=== PATIENT | male | born 1985 | race Caucasian/White ===

== ENCOUNTER 2025-02-12 10:24 | Inpatient (IN) | payer SELFPAY ==
[2025-02-12 10:26] VITALS: BP 130/83; PULSE 96; RESP 19; TEMP 36.7; O2SAT 100; BMI 26.4
--- NOTE | 2025-02-12 11:21 | XR_ITS ---
Examination: Foot, right, 3 views Technique: AP, oblique, lateral views foot, 3 views Date and time of exam: February 12, 2025, 1134 hours INDICATIONS: Right foot swelling beginning 3 weeks ago. FINDINGS: Prominent hallux valgus bunion deformity Moderate osteoarthritis first metatarsophalangeal joint Erosions distal medial first metatarsal on the oblique view No fracture Soft tissue swelling dorsum of the foot IMPRESSION: Prominent hallux valgus bunion deformity Erosions distal medial first metatarsal on the oblique view, consider early osteomyelitis Suggest MRI foot without contrast follow-up
--- NOTE | 2025-02-12 11:21 | XR_ITS ---
Examination: Duplex scan of the lower extremity, unilateral right Date and time of exam: February 12, 2025, 1209 hours INDICATIONS: Right leg swelling beginning 3 weeks ago Technique: Duplex scan of the extremity veins using B-mode/grayscale imaging and Doppler spectral analysis and color flow Attention is directed to internal echogenicity, compression and augmentation involving these veins, color flow assessment, spectral analysis Findings: Major deep venous structures in the extremity demonstrate normal course and caliber. There is no evidence of deep vein thrombosis. Normal color flow and spectral analysis Impression: Negative for DVT..
[2025-02-12 11:40] LABS: Basophils # (Auto) 0.0 Thou/mm3 (0.0-0.2); Basophils % (Auto) 0 % (0-2.5); Eosinophils # (Auto) 0.0 Thou/mm3 (0.0-0.5); Eosinophils % (Auto) 0 % (0-10); Hematocrit 39.1 % (41.0-53.0); Hemoglobin 13.3 g/dL (13.5-16.0); Immature Granulocytes Auto 0.02 Thou/mm3 (0.00-0.00); Lymphocytes # (Auto) 1.0 Thou/mm3 (1.0-4.8); Lymphocytes % (Auto) 13 % (10-50); Mean Corpuscular HGB Conc 34.0 g/dl (31.0-37.0); Mean Corpuscular Hemoglobin 31.6 pg (25.0-35.0); Mean Corpuscular Volume 93 fL (80-100); Monocytes # (Auto) 0.8 Thou/mm3 (0.0-0.8); Monocytes % (Auto) 10 % (0-12); Neutrophils # (Auto) 5.9 Thou/mm3 (1.8-7.7); Neutrophils % (Auto) 76 % (37-80); Nucleated Red Blood Cell # 0.00 Thou/mm3 (0.00-0.00); Nucleated Red Blood Cell % 0 /100 WBC (0); Platelet Count 184 Thou/mm3 (140-440); RDW Standard Deviation 42.5 fL (35.1-43.9); Red Blood Count 4.21 Miln/mm3 (4.50-5.90); White Blood Count 7.7 Thou/mm3 (3.8-10.6)
[2025-02-12 12:03] LABS: Alanine Aminotransferase 22 U/L (10-49); Albumin, Serum 4.5 gm/dL (3.5-5.0); Albumin/Globulin Ratio 1.5 (1.2-2.2); Alkaline Phosphatase 61 U/L (46-116); Anion Gap 9 (7-16); Aspartate Amino Transferase 31 U/L (0-34); BUN/Creatinine Ratio 17 Ratio (12-20); Bilirubin,Total 0.3 mg/dL (0.3-1.2); Blood Urea Nitrogen 15 mg/dL (9-23); C-Reactive Protein 0.9 mg/dL (0.0-0.9); Calcium 9.5 mg/dL (8.3-10.6); Calcium (Corrected) 9.5 mg/dL (8.5-10.1); Carbon Dioxide 25.6 mMol/L (20.0-31.0); Chloride 107 mMol/L (98-107); Creatinine (Component) 0.9 mg/dL (0.6-1.3); Estimated Creatinine Clearance 115.0 mL/min (>60); Globulin 3.0 gm/dL (2.3-3.5); Glucose 95 mg/dL (74-106); Lipase 38 U/L (12-53); Osmolality,Calculated 283 (275-295); Potassium 4.0 mMol/L (3.4-5.1); Sodium 142 mMol/L (136-145); Total Protein 7.5 gm/dL (5.7-8.2); eGFR > 60 See Note
[2025-02-12] MEDS: PIPER/TAZO INJ 4.5 GM in SODIUM CHLORIDE 0.9% (POP) 100 ML IV (12:23)
[2025-02-12] MEDS: VANCOMYCIN/D5W 1500 MG IVPB 300 ML 120 MG IV (12:59)
[2025-02-12 14:17] LABS: Sed Rate (ESR) 33 mm/hr (0-15)
[2025-02-12 14:19] LABS: Collection Type, Urine Clean Catch
[2025-02-12 14:30] LABS: Bilirubin,Urine Negative (Negative); Blood,Urine Negative (Negative); Clarity,Urine Clear (Clear/Hazy); Color,Urine Lt-Yellow (Lt Yel-Yel); Culture Indicated,Urine Not Indicated; Glucose, Urine Negative (Negative); Ketones,Urine 2+ (Negative); Leukocyte Esterase,Urine Negative (Negative); Nitrite,Urine Negative (Negative); PH,Urine 6.5 (5.0-7.0); Protein,Urine Negative (Neg - Trace); RBC,Urine 4 /hpf (0-3); Specific Gravity,Urine 1.023 (1.001-1.035); Squamous Epithelial Cell,Urine 1 /hpf (0-5); Urobilinogen,Urine Negative mg/dL (0.0-1.0); WBC,Urine 1 /hpf (0-5)
--- NOTE | 2025-02-12 15:34 | EDNOTE_ITS ---
ED Medical Clearance RME/HPI General Chief complaint: Medical Clearance Stated complaint: MEDICAL CLEARANCE Arrival date/time: 02/12/25 10:24 Mode of arrival: ambulatory Limitations: no limitations RME / HPI RME / HPI Narrative: Patient is a 39-year-old male with medical history notable for polysubstance use disorder that is in the emergency department concerns for right foot pain and sw elling. Patient came in as a medical clearance for incarceration. Denies fevers chills nausea vomiting chest pain palpitations abdominal pain dysuria hematuria melena bloody stools. Patient does have a remote history of IV drug use. No recent trauma. Patient lives on the streets. Related Information Previous Rx's ?Medication ?Instructions ?Recorded cephalexin 500 mg capsule 500 mg PO TID Osteomyelitis 6 02/14/25 weeks #126 caps clotrimazole 1 % topical cream 1 applic topical TID Sudeep oth Feet, 02/14/25 fungal infection #15 grams doxycycline hyclate 100 mg capsule 100 mg PO BID Osteo myelitis 6 02/14/25 weeks #84 caps nicotine (polacrilex) 4 mg gum 4 mg buccal Q2H #20 ea 02/14/25 Allergies Allergy/AdvReac Type Severity Reaction Status Date / Time No Known Allergies Allergy Verified 02/12/25 10:31 Review of Systems Review of Systems Systems Reviewed: All systems reviewed, normal except as documented Past Medical History Past Medical History CARDIAC: Positive Deep Vein Thrombosis Social History SMOKING STATUS: Light (< 1 pack/day) SUBSTANCE USE: does not use ED Exam General Limitations: Present no limitations General appearance: Present alert and in no apparent distress Head Head exam: Present atraumatic and normocephalic Eye Eye exam: Present normal appearance and PERRL ENT ENT exam: Present normal exam and normal oropharynx Neck Neck exam: Present normal inspection and full ROM Chest Chest inspection: Present normal inspection and symmetric chest wall rise Respiratory Respiratory exam: Present normal lung sounds bilaterally and respiratory distress Cardiovascular Cardiovascular exam: Present regular rate Abdominal Exam Abdominal exam: Present soft; Absent distention or tenderness Extremities Exam Extremities exam: Present other (Right foot with edema, skin on the plantar surface appears like it is under chronic moisture, the skin appears partially macerated, has multiple ulcers on the toes and the plantar surface of the foot, no associated fluctuance or crepitus no erythema no discharge) Neurological Exam Neurological exam: Present alert and other Psychiatric Psychiatric exam: Present normal affect and normal mood Skin Skin exam: Present warm Course Quality Measures none Orders Category Date Time Status Admit to Inpatient Status Routine Admission 02/12/25 16:12 Active Patient Condition Routine Admission 02/12/25 16:11 Ordered Notify provider NEEDED Care 02/12/25 16:11 Completed Diet Regular Diet 02/12/25 Dinner Active US venous doppler LE RT Stat Exams 02/12/25 11:21 Completed XR foot comp RT min 3V Stat Exams 02/12/25 11:21 Completed Blood Culture (Lab) Stat Lab 02/12/25 15:57 Completed CBC AM DRAW Lab 02/13/25 04:19 Completed CBC AM DRAW Lab 02/14/25 05:07 Completed CBC Stat Lab 02/12/25 11:29 Completed CMP [Comprehensive Metabolic Panel] Stat Lab 02/12/25 11:29 Completed CRP [C-Reactive Protein] Stat Lab 02/12/25 11:29 Completed Comprehensive Metabolic Panel AM DRAW Lab 02/13/25 04:19 Completed Comprehensive Metabolic Panel AM DRAW Lab 02/14/25 05:07 Completed ESR [Sed Rate (ESR)] Stat Lab 02/12/25 11:29 Completed Lipase Stat Lab 02/12/25 11:29 Completed Magnesium AM DRAW Lab 02/13/25 04:19 Completed Magnesium AM DRAW Lab 02/14/25 05:07 Completed Phosphorous AM DRAW Lab 02/13/25 04:19 Completed Phosphorous AM DRAW Lab 02/14/25 05:07 Completed UA, C/S IF [Urinalysis, C/S if Indicated] Stat Lab 02/12/25 14:12 Completed Acetaminophen Tab [Tylenol Tab] Med 02/12/25 16:11 Discontinued 650 mg PO Q6H PRN Ibuprofen Tab [Motrin Tab] Med 02/12/25 16:11 Discontinued 600 mg PO Q6H PRN Ondansetron Inj [Zofran Inj] Med 02/12/25 16:11 Discontinued 4 mg IVP Q6H PRN Piper/Tazo Inj [Zosyn Inj] 4.5 gm Med 02/12/25 11:22 Discontinued Sodium Chloride 0.9% (Pop) [NS 0.9% mini bag] 100 ml IV STAT Vancomycin Pharmacy to Dose Med 02/12/25 09:00 Discontinued 1 each IV X1 ONE Vancomycin/D5w 1500 mg Ivpb 300 ml Med 02/12/25 11:45 Discontinued IV X1 oxyCODONE/APAP 5/325 [Percocet 5/325] Med 02/12/25 16:11 Discontinued 1 tab PO Q6H PRN Code Status Routine Oth 02/12/25 16:11 Completed Oxygen Delivery PRN RT 02/12/25 16:11 Completed Vital Signs Vital signs: Vital Signs Temperature 98.1 F 02/12/25 10: Pulse Rate 96 02/12/25 10: Respiratory Rate 19 02/12/25 10: Blood Pressure 130/83 02/12/25 10:26 Pulse Oximetry (%) 100 02/12/25 10:26 Oxygen Delivery Method Room Air 02/12/25 10: Pulse ox is 100% on room air which is adequate. Medical Clearance MDM Narrative MDM Narrative:: Patient is a 39-year-old male is in the emerged by concerns for right foot swelling and pain. Vital signs and exam as listed. Concern for cellulitis, osteomyelitis, trench foot, DVT among others. Ordered labs, x-ray of the foot as well as ultrasound of the lower extremity. Also ordered broad-spectrum antibiotics. Labs without any acute hematologic abnormality, no white count no left shift, ESR 33 our upper limit of normal is 15 CRP not elevated, no acute electrolyte abnormalities, urinalysis without evidence of infection x-ray of the foot with evidence of possible early osteomyelitis. Ultrasound of lower extremity unremarkable. Given findings on imaging and workup concerned the patient has osteomyelitis, consulted hospitalist for admission. Kindly accepted for admission Patient data External records reviewed:: None Clinical information provided by:: patient and law enforcement Social determinants that could affect healthcare access:: substance use Patient has the following chronic illnesses:: See MDM How is presenting disease/condition affected by chronic disease/condition?: exa cerbated by Evaluation data The following diagnostics were reviewed and interpreted by me:: lab results and radiology exam(s) Lab and/or radiology exams considered but not ordered:: None Interpretation Summary: See MDM Medications / Prescriptions Medications or Prescriptions considered but not ordered:: None Medication administrations:: Medication Administration History Discontinued Medications Acetaminophen (Acetaminophen 325 Mg Tablet) 650 mg PO Q6H PRN PRN Reason: Fever >101.5 Stop: 03/14/25 16:10 Clotrimazole (Clotrimazole Cr 1% 30 Gm Tube) 0 gm TOP BID ZOEY Stop: 03/15/25 20:59 Last Admin: 02/14/25 09:21 Dose: 1 applicatio Documented By: Admin: 02/13/25 20:33 Dose: Not Given Documented By: BRET Non-Admin Reason: Medication Not Available Heparin Sodium (Porcine) (Heparin Sod Inj 5000 Unit/Ml Vial) 5,000 unit SC Q12HR ZOEY Stop: 02/26/25 20:59 Last Admin: 02/14/25 09:13 Dose: 5,000 unit Documented By: ELLA Co-signed By: HARRY Admin: 02/13/25 20:26 Dose: 5,000 unit Documented By: BRET Co-signed By: JORGE L Admin: 02/13/25 09:19 Dose: 5,000 unit Documented By: ALONDRA Co-signed By: ANNA Admin: 02/12/25 22:47 Dose: 5,000 unit Documented By: MELISSA Co-signed By: LIZBET Piperacillin Sod/Tazobactam (Sod 4.5 gm/ Sodium Chloride) 100 mls @ 200 mls/hr IV STAT STA; Protocol Stop: 02/12/25 11:51 Last Infusion: 02/12/25 13:00 Dose: Infused Documented By: Admin: 02/12/25 12:23 Dose: 200 mls/hr Documented By: GEN Vancomycin HCl/Dextrose (Vancomycin/D5w 1500 Mg Ivpb) 300 mls @ 120 mls/hr IV X1 ONE Stop: 02/12/25 14:14 Last Admin: 02/12/25 12:59 Dose: 120 mls/hr Documented By: GEN Ceftriaxone Sodium 2 gm/ (Sodium Chloride) 50 mls @ 100 mls/hr IV QDAY ZOEY Stop: 02/19/25 16:21 Last Admin: 02/14/25 09:13 Dose: 100 mls/hr Documented By: Infusion: 02/13/25 09:49 Dose: Infused Documented By: Admin: 02/13/25 09:19 Dose: 100 mls/hr Documented By: Infusion: 02/12/25 18:21 Dose: Infused Documented By: Admin: 02/12/25 17:51 Dose: 100 mls/hr Documented By: GEN Doxycycline Hyclate 100 mg/ (Sodium Chloride) 100 mls @ 100 mls/hr IV BID ZOEY Stop: 02/19/25 20:59 Last Admin: 02/14/25 09:56 Dose: 100 mls/hr Documented By: Infusion: 02/13/25 21:26 Dose: Infused Documented By: Admin: 02/13/25 20:26 Dose: 100 mls/hr Documented By: Infusion: 02/13/25 10:59 Dose: Infused Documented By: Admin: 02/13/25 09:59 Dose: 100 mls/hr Documented By: Infusion: 02/12/25 23:47 Dose: Infused Documented By: Admin: 02/12/25 22:47 Dose: 100 mls/hr Documented By: CTF Ibuprofen (Ibuprofen Tab 600 Mg Tablet) 600 mg PO Q6H PRN PRN Reason: Pain 1-3 and fever >100.4F Stop: 03/14/25 16:10 Influenza Virus Vaccine Quadrival (Influenza Virus 0.5 Ml Syringe ) 0.5 ml IMi .ONCE ONE Stop: 02/12/25 19:56 Nicotine (Nicotine Patch 21 Mg/24 Hr Patch.Td24) 21 mg TOP [facility]DAY [facility] Stop: 03/15/25 08:59 Last Admin: 02/14/25 09:14 Dose: 21 mg Documented By: Admin: 02/13/25 09:19 Dose: 21 mg Documented By: DC Nicotine (Nicotine Patch 14 Mg/24 Hr Patch.Td24) 14 mg TOP QDAY [facility] Stop: 03/15/25 20:29 Last Admin: 02/13/25 20:33 Dose: 14 mg Documented By: CP Ondansetron HCl (Ondansetron Inj 2 Mg/Ml Inj 2 Ml) 4 mg IVP Q6H PRN; Protocol PRN Reason: NAUSEA OR VOMITING Stop: 03/14/25 16:10 Oxycodone/Acetaminophen (Oxycodone/Apap 5/325 Tablet) 1 tab PO Q6H PRN PRN Reason: PAIN SCALE 4-6 (Moderate Stop: 02/17/25 16:10 Pharmacy Consult (Vancomycin Pharmacy To Dose 1 Each Each) 1 each IV X1 ONE Stop: 02/12/25 09:01 Last Admin: 02/12/25 10:24 Dose: Not Given Documented By: CS Non-Admin Reason: Duplicate Medication on eMAR Potassium Chloride (Potassium Chloride 20 Meq Tabcr) 40 meq PO X1 ONE Stop: 02/13/25 07:16 Last Admin: 02/13/25 09:19 Dose: 40 meq Documented By: DC See above Consultations Consultation(s) initiated? (list below): Yes Diagnosis Medical Clearance Differential Diagnosis: other Most likely diagnosis given after review of the tests above:: Right foot osteomyelitis Admission Indicated Admission indicated?: indicated Admission Request Was there a request for admission?: Yes Admission Attestation Admission request attestation: Discussed case with Hospitalist service regarding admission. Discussed patients ED course, exam findings, labs, and radiology results. The Hospitalist [agrees] to accept the patient for admission. Disposition Plan Disposition Plan: Admit Critical Care Time Critical Care Time Critical Care Time: Yes Total Critical Care Time (min.): 36 Attestation: Total critical care time: Approximately?36?minutes Due to a high probability of clinically significant, life threatening deterioration, the patient required my highest level of preparedness to intervene emergently and I personally spent this critical care time directly and personally managing the patient. This critical care time included obtaining a history; examining the patient; pulse oximetry; ordering and review of studies; arranging urgent treatment with development of a management plan; evaluation of patient's response to treatment; frequent reassessment; and, discussions with other providers. This critical care time was performed to assess and manage the high probability of imminent, life-threatening deterioration that could result in multi-organ failure. It was exclusive of separately billable procedures and treating other patients and teaching time. Please see MDM section and the rest of the note for further information on patient assessment and treatment. Discharge Plan Plan Patient Disposition: Admit Acute Care w/in Hospital Patient condition on transfer: Stable Problem List Clinical Impression: Osteomyelitis Patient/Caregiver Discharge Instructions Discharge Activity: activity as tolerated
[2025-02-12 16:11] VITALS: PULSE 94; RESP 100; RESP 16
--- NOTE | 2025-02-12 16:18 | ESHP_ITS ---
<Statement entered by Comfort Henning MD - 02/12/25 20:49> Patient was seen and examined at bedside. I agree on the assessment and plan on this note as documented by resident Dr Ina Barclay DO PGY1. 39-year-old male with past medical history of right lower extremity DVT 2018, chronic smoker, about 30 pack years and polysubstance use presented to [facility] emergency department with a chief complaint of foot pain. Patient currently complaining of left foot and left calf pain which he reports started about 3 weeks ago has been progressive, patient has significant swelling in the right lower extremity, there is minimal surrounding erythema around right hallux ulcer and left foot ulceration. In the ER patient underwent x-ray of the right foot which was prominent for hallux valgus bunion deformity and distal medial first third metatarsal erosions consistent with early osteomyelitis. Patient was given IV Zosyn and vancomycin in the emergency department, we will admit patient for management of cellulitis and further workup for osteomyelitis patient will be started on IV ceftriaxone and doxycycline, we will obtain bilateral lower extremity arterial Doppler, HIV serology, urine drug screen and hemoglobin A1c in AM. We will consider MRI to rule out osteomyelitis, wound care consulted. Of note patient was sent for medical clearance from court for incarceration. Case discussed with attending Dr. Shira Lane MD PGY-2 Documentation for date of: 02/12/25 HPI History of Present Illness History of present illness: History of Present Illness Nazario Cotton, 39yM, with PMH of polysubstance use presented to the hospital for evaluation of foot ulceration and pain. He is a poor historian with limited self care, and his account of symptoms has been inconsistent across providers. Patient reported left foot and left calf pain beginning approximately 3 weeks ago, without preceding trauma, scratching, or IV drug use. However, according to the ED note, he initially presented for right foot pain and swelling of 3 days duration, without associated fever or chills, and with a documented history of IV drug use. He was brought in from court for medical clearance prior to incarceration. On examination, he was found to have a right hallux lateral ulcer and a left 5th toe dorsal ulceration. Both lesions were non-draining with minimal surround erythema. Despite bilateral findings, he continued to report pain only in left foot and calf. Patient will be admitted for management of cellulitis. ED course: Vitals: Temperature 98.1 F, FL 96, RR 19, BP 130/83, 100% O2 saturation on room air. Labs: WBC 7.7, Hgb 13.3, ESR 33, potassium 4.0, anion gap 9, creatinine 0.9, CRP 0.9 XR of Right foot (02/12/2025): Prominent hallux valgus bunion deformity, Erosions distal medial first metatarsal on the oblique view, consider early osteomyelitis US venous doppler right Lower Extremity (02/12/2025): Negative for DVT Medical history: As stated above Surgical history: Denies Allergies: NKDA Medications: Pending official med rec Family history: Noncontributory Social history: Smoked for 30 years, Occasional drinking alcohol, Smoking Marijuana. Denies using other illicit drugs Review of Systems Review of Systems Narrative Review of Systems: All 12 systems assessed and the patient denies unless otherwise stated in HPI Exam Vital Signs Temp Pulse Resp BP Pulse Ox O2 Del Method 98.1 F 96 19 130/83 100 Room Air 02/12/25 10:26 02/12/25 10:26 02/12/25 10:26 02/12/25 10:26 02/12/25 10:26 02/12/25 10:26 Narrative Exam General: No acute distress, well nourished, AAO x2 Eye: PERRL, EOMI, normal conjunctiva, no scleral icterus HENT: Normocephalic, atraumatic, hearing intact to conversation at normal volume, moist oral mucosa Neck: Supple, non-tender, no JVD, no lymphadenopathy Lungs: Non-labored respirations, symmetric chest rise, Clear to auscultate bilaterally, No wheezing, rhonchi, crackles Heart: Peripheral pulses intact bilaterally, Regular Rate and Rhythm. Abdomen: Soft, non-tender, non-distended, no palpable masses Musculoskeletal: Normal range of motion and strength, No cyanosis or edema, No visible joint swelling, Tenedbilateral calf Skin: Right hallux lateral ulcer and a left 5th toe dorsal ulceration. Both lesions were non-draining with minimal surround erythema. Psychiatric: Cooperative, appropriate mood and affect, Awake and alert, not agitated Neuro: Cranial nerves II-XII grossly intact. Strength 5/5 throughout. Sensations intact to light touch. Results: Labs 02/13/25 04:19 02/13/25 04:19 Labs: Short CBC 02/12/25 Range/Units 11: WBC 7.7 (3.8-10.6) Thou/mm3 Hgb 13.3 L (13.5-16.0) g/dL Hct 39.1 L (41.0-53.0) % Plt Count 184 (140-440) Thou/mm3 BMP 02/12/25 11:29 Sodium 142 Potassium 4.0 Chloride 107 Carbon Dioxide 25.6 BUN 15 Creatinine 0.9 Glucose 95 Calcium 9.5 Liver Function 02/12/25 Range/Units 11:29 Total Bilirubin 0.3 (0.3-1.2) mg/dL AST 31 (0-34) U/L ALT 22 (10-49) U/L Alkaline Phosphatase 61 (46-116) U/L Albumin 4.5 (3.5-5.0) gm/dL Urine 02/12/25 Range/Units 14:12 Urine Color Lt-Yellow (Lt Yel-Yel) Urine Clarity Clear (Clear/Hazy) Urine pH 6.5 (5.0-7.0) Ur Specific [place] 1.023 (1.001-1.035) Urine Protein Negative (Neg - Trace) Urine Glucose (UA) Negative (Negative) Quality Measures Quality Measures VTE prophylaxis Medications Home Medications and Allergies Home Medications ?Medication ?Instructions ?Recorded ?Confirmed ?Type No Known Home Medications 12/29/1801/19 History Allergies Allergy/AdvReac Type Severity Reaction Status Date / Time No Known Allergies Allergy Verified 02/12/25 10:31 Visit Medications Discontinued Medications Piperacillin Sod/Tazobactam (Sod 4.5 gm/ Sodium Chloride) 100 mls @ 200 mls/hr IV STAT STA; Protocol Stop: 02/12/25 11:51 Last Infusion: 02/12/25 13:00 Dose: Infused Vancomycin HCl/Dextrose (Vancomycin/D5w 1500 Mg Ivpb) 300 mls @ 120 mls/hr IV X1 ONE Stop: 02/12/25 14:14 Last Admin: 02/12/25 12:59 Dose: 120 mls/hr Pharmacy Consult (Vancomycin Pharmacy To Dose 1 Each Each) 1 each IV X1 ONE Stop: 02/12/25 09:01 Last Admin: 02/12/25 10:24 Dose: Not Given Assessment & Plan Plan Nazario Cotton, 39yM, with PMH of polysubstance use presented to the hospital for evaluation of foot ulceration and pain. Patient will be admitted for management of cellulitis. #Cellulitis of left and right toe #Right hallux lateral ulcer and a left 5th toe dorsal ulcer -In admission, Temperature 98.1 F, FL 96, RR 19, WBC 7.7, Hgb 13.3, ESR 33, potassium 4.0, anion gap 9, creatinine 0.9, CRP 0.9 -Patient reported left foot and calf pain that started 3 weeks ago. -On examination, he was found to have a right hallux lateral ulcer and a left 5th toe dorsal ulceration. Both lesions were non-draining with minimal surround erythema. -XR of Right foot (02/12/2025): Prominent hallux valgus bunion deformity, Erosions distal medial first metatarsal on the oblique view, consider early osteomyelitis -US venous doppler right Lower Extremity (02/12/2025): Negative for DVT Plan: -On IV Ceftriaxone 2g qd and IV Doxycycline 100mg bid -HbA1c, HIV (1&2) antibotdy, Hep panel, Lactic acid ordered -US arterial duplex bilateral Lower Extremity pending -XR left foot pending -BCx pending -Referral Wound care Disposition: MedSurg Diet: Regular diet GI prophylaxis: Not indicated DVT prophylaxis: Heparin 5000 units SC q12hr Code: FULL Assessment and plan discussed with my attending physician Dr. Gloria and Dr. Henning (PGY-2) Dr. Barclay (PGY-1) - Internal medicine resident Attending Provider Attestation/Addendum Shira Lorenzo DO, attest that I was physically present for the [place] portions of the service and evaluated the patient with the resident and I reviewed and discussed the case with the resident and agree with the resident's findings and plans of care as documented above Patient is a 39-year-old male with past medical history of DVT in the right lower extremity, chronic tobacco use who presented to the ED due to worsening lower extremity pain. He states that he noticed the pain and worsening swelling in the right foot for the past 3 weeks. He states that his legs first started to swell, causing his shoes to be too tight, resulting in ulcers on his first and fifth digits of b/l feet. Patient is homeless and has very poor hygiene. ulcers appear dry with dirt encrusted in ulcer and between toes. Patient reports pain on palpation. Right foot is edematous with 2+ pitting edema and erythema noted on dorsum of foot. Patient denies any trauma, falls or animal/ insect bites. XR of foot shows signs of early osteomyelitis. Will admit patient to med/surg for antibiotics and treatment of cellulitis of right foot and osteomyelitis of first metatarsal. Patient has no hx of diabetes and does not take any medications. Will check and A1c. Will also order arterial US of b/l LE to rule out PAD given hx of chronic tobacco use. will start on doxycycline and rocephin. Will consult wound care. F/u with blood cultures to rule out hematogenous cause for osteomyelitis.
--- NOTE | 2025-02-12 16:18 | XR_ITS ---
Examination: Arterial duplex lower extremity study. Date and time of exam: February 12, 2025, 1659 hours INDICATIONS: Right leg swelling beginning 3 weeks ago Findings: Duplex sonographic imaging of the lower extremity arteries using B-mode/Saunders scale imaging and Doppler spectral analysis and color flow. Ankle brachial indices have been recorded. Right common femoral artery demonstrates biphasic flow. Right superficial femoral artery demonstrates biphasic flow. Right popliteal artery demonstrates biphasic flow. Right posterior tibial artery demonstrated monophasic flow. Right ankle/brachial index is 1.3. Left common femoral artery demonstrates triphasic flow. Left superficial femoral artery demonstrates biphasic flow. Left popliteal artery demonstrates biphasic flow. Left posterior tibial artery demonstrated monophasic flow. Left ankle/brachial index is 1.4. Impression: Negative study
--- NOTE | 2025-02-12 16:21 | XR_ITS ---
Examination: Foot, left, 3 views Technique: AP, oblique, lateral views foot, 3 views Date and time of exam: February 12, 2025, 1731 hours INDICATIONS: Ulcer nonhealing left foot 3 weeks with pain FINDINGS: Soft tissue swelling dorsum of the foot No acute fracture Tiny plantar bony calcaneal spur No cary cortical bone destruction IMPRESSION: No cary cortical bone destruction
--- NOTE | 2025-02-12 16:29 | PC.NURSE ---
Pt was brought in for medical clearance, but is getting admitted. State bulk station agent Saeed Scott left his card with his number of [phone] and said to call him if we have any problems pt. He also stated that the pt is a high risk sex offender with restrictions when it comes to children, so I informed my charge nurse so that she could inform the appropriate person to insure that this pt's room is in an appropriate location based on policy and safety for other pts. The interface control officer also stated that the pt is wearing a parole tracking device that needs to be charged twice a day for 1 hour each time. Will inform the next nurse that assumes care
[2025-02-12 16:34] VITALS: BP 106/59; PULSE 97; RESP 18; TEMP 36.6; O2SAT 99
--- NOTE | 2025-02-12 16:47 | PC.NURSE ---
[facility] phone # [phone]
[2025-02-12 17:27] LABS: Lactate (Lactic Acid) 0.7 mMol/L (0.4-2.0)
[2025-02-12] MEDS: cefTRIAXone 2 GM in SODIUM CHLORIDE 0.9% (Popper) 50 ML IV (17:51)
[2025-02-12 18:03] LABS: HIV (1&2) Antibody Rapid Non-Reactive
[2025-02-12 18:17] VITALS: BP 95/67; PULSE 83; RESP 18; TEMP 36.9; O2SAT 100
[2025-02-12 18:33] VITALS: BP 103/71; PULSE 74; RESP 18; TEMP 36.9; O2SAT 100
--- NOTE | 2025-02-12 18:38 | PC.NURSE ---
Called agent Sonia and informed him that the pt was being transferred to [facility]. I asked Sonia what we (the hospital) needs to do when the pt is discharged, he said there's nothing to do on our end because it is the pt's responsibility to contact the agent and inform him of his location/status. Sonia also stated that the pt does have the GPS tracker on him so the agent can see where he is at all times. Pt is aware of the need to charge the tracking device, how to do it, and the grievance and appeals coordinator was placed in his belongings bag which was taken upstairs with him.
[2025-02-12 20:00] VITALS: BP 103/64; PULSE 64; RESP 17; TEMP 36.2; O2SAT 99
[2025-02-12 21:28] LABS: Hepatitis A Antibody IgM Non Reactive (Non React); Hepatitis B Core Antibody IgM Non Reactive (Non React); Hepatitis B Surface Antigen Non Reactive (Non React); Hepatitis C Antibody Non Reactive (Non React)
[2025-02-12 22:39] VITALS: BMI 28.1
[2025-02-12] MEDS: DOXYCYCLINE INJ 100 MG in SODIUM CHLORIDE 0.9% (POP) 100 ML IV (22:47)
[2025-02-12] MEDS: HEPARIN SOD INJ 5000 UNIT/ML VIAL SC (22:47)
[2025-02-13] VITALS (7 sets, daily range): BP systolic 111–132; BP diastolic 67–81; PULSE 81–93; RESP 16–97; TEMP 36.1–36.4; O2SAT 92–99
[2025-02-13 06:02] LABS: Basophils # (Auto) 0.0 Thou/mm3 (0.0-0.2); Basophils % (Auto) 0 % (0-2.5); Eosinophils # (Auto) 0.0 Thou/mm3 (0.0-0.5); Eosinophils % (Auto) 1 % (0-10); Hematocrit 37.9 % (41.0-53.0); Hemoglobin 12.8 g/dL (13.5-16.0); Immature Granulocytes Auto 0.02 Thou/mm3 (0.00-0.00); Lymphocytes # (Auto) 1.5 Thou/mm3 (1.0-4.8); Lymphocytes % (Auto) 25 % (10-50); Mean Corpuscular HGB Conc 33.8 g/dl (31.0-37.0); Mean Corpuscular Hemoglobin 32.2 pg (25.0-35.0); Mean Corpuscular Volume 95 fL (80-100); Monocytes # (Auto) 0.6 Thou/mm3 (0.0-0.8); Monocytes % (Auto) 11 % (0-12); Neutrophils # (Auto) 3.8 Thou/mm3 (1.8-7.7); Neutrophils % (Auto) 63 % (37-80); Nucleated Red Blood Cell # 0.00 Thou/mm3 (0.00-0.00); Nucleated Red Blood Cell % 0 /100 WBC (0); Platelet Count 173 Thou/mm3 (140-440); RDW Standard Deviation 44.1 fL (35.1-43.9); Red Blood Count 3.98 Miln/mm3 (4.50-5.90); White Blood Count 6.0 Thou/mm3 (3.8-10.6)
[2025-02-13 06:22] LABS: Alanine Aminotransferase 16 U/L (10-49); Albumin, Serum 4.0 gm/dL (3.5-5.0); Albumin/Globulin Ratio 1.5 (1.2-2.2); Alkaline Phosphatase 53 U/L (46-116); Anion Gap 10 (7-16); Aspartate Amino Transferase 23 U/L (0-34); BUN/Creatinine Ratio 10 Ratio (12-20); Bilirubin,Total 0.4 mg/dL (0.3-1.2); Blood Urea Nitrogen 9 mg/dL (9-23); Calcium 8.6 mg/dL (8.3-10.6); Calcium (Corrected) 8.6 mg/dL (8.5-10.1); Carbon Dioxide 24.5 mMol/L (20.0-31.0); Cardiac Risk Estimate 2.7 RATIO (4.0-6.7); Chloride 106 mMol/L (98-107); Cholesterol 101 mg/dL (132-200); Creatinine (Component) 0.9 mg/dL (0.6-1.3); Estimated Creatinine Clearance 125.0 mL/min (>60); Free T4 (Free Thyroxine) 1.18 ng/dL (0.89-1.76); Globulin 2.6 gm/dL (2.3-3.5); Glucose 125 mg/dL (74-106); HDL Cholesterol 38 mg/dL (40-60); LDL Cholesterol,Calculated 53 mg/dL (0-130); Magnesium 2.0 mg/dL (1.6-2.6); Osmolality,Calculated 279 (275-295); Phosphorous 2.8 mg/dL (2.4-5.1); Potassium 3.5 mMol/L (3.4-5.1); Sodium 140 mMol/L (136-145); Thyroid Stimulating Hormone 0.72 uIU/mL (0.55-4.78); Total Protein 6.6 gm/dL (5.7-8.2); Triglycerides 50 mg/dL (30-150); eGFR > 60 See Note
[2025-02-13 06:25] LABS: Glucose Estimated Average 105 mg/dL (80-131); Hemoglobin A1C 5.3 % Hgb (4.8-6.0)
[2025-02-13 08:18] LABS: Amphetamine/Methamp Scrn,U Positive (Negative); Barbiturate Screen,Urine Negative (Negative); Benzodiazepines Screen,Urine Negative (Negative); Benzoylecgonine Screen, Ur Negative (Negative); Fentanyl Screen,Urine Negative (Negative); Opiate Screen,Urine Negative (Negative); THC Screen,Urine Positive (Negative)
[2025-02-13] MEDS: cefTRIAXone 2 GM in SODIUM CHLORIDE 0.9% (Popper) 50 ML IV (09:19)
[2025-02-13] MEDS: HEPARIN SOD INJ 5000 UNIT/ML VIAL SC ×2 (09:19→20:26)
[2025-02-13] MEDS: NICOTINE PATCH 21 MG/24 HR PATCH.TD24 TOP (09:19)
[2025-02-13] MEDS: DOXYCYCLINE INJ 100 MG in SODIUM CHLORIDE 0.9% (POP) 100 ML IV ×2 (09:59→20:26)
--- NOTE | 2025-02-13 11:46 | PC.SS ---
SS met with patient regarding his d/c plan. Pt is alert/oriented. Pt was admitted for Cellulititis. Pt confirmed demographic and contact information is correct on facesheet. Pt states he resides with his friends. Pt ambulates independently without assistance or DME. Pt is ok with all ADLs. Pt states he has GPS Monitor and his Legal Recruiter, Saeed Eubanksjack, is his emergency personal care worker. Pt states his parol agent [place] transportation at [place]. Pt states he was brought to hospital by his youth agent. Pt states he has not followed up with PCP in years. SS provided verbal options to follow up with PCP. Pt is requesting to follow up with the physican residents at their clinic. D/C plan: Return home Next of Kin: Legal Recruiter, Saeed Eubanksjack, phone# PCP: follow up at the [facility] Address: Correct on facesheet
--- NOTE | 2025-02-13 16:17 | ESPR_ITS ---
<Statement entered by Comfort Henning MD - 02/13/25 18:14> Patient was seen and examined at bedside. I agree on the assessment and plan on this note as documented by resident Dr Ina Barclay DO PGY1. 39-year-old male admitted for cellulitis and possible osteomyelitis of the right foot, currently on IV antibiotics, foot pain has improved, will start on topical antifungals. Will follow cultures which are pending. Anticipate discharge in the next 24 hours on oral antibiotics for 6 weeks. Case discussed with attending Dr. Shira Lane MD PGY-2 Documentation for date of: 02/13/25 Subjective Subjective Interval history: Patient on IV Ceftriaxone 2g qd and IV Doxycycline 100mg bid HbA1c level 5.3, hep panel negative, HIV 1 and 2 antibody was negative US arterial duplex bilateral Lower Extremity was negative XR left foot: negative Blood Culture was negative for 24 hours. Patient will receive 1 more day of IV antibiotics. Expected to be discharged within 24 to 48 hours. No Overnight events. Labs reviewed and patient examined at the bedside. Denies chest pain, palpation, SOB, abdominal pain, N/V, fevers or chills. Exam Vital Signs Temp Pulse Resp BP Pulse Ox O2 Del Method 97.4 F 88 18 111/79 99 Room Air 02/13/25 15:57 02/13/25 16:05 02/13/25 16:05 02/13/25 15:57 02/13/25 15:57 02/13/25 15:57 Narrative Exam General: No acute distress, well nourished, AAO x2 Eye: PERRL, EOMI, normal conjunctiva, no scleral icterus HENT: Normocephalic, atraumatic, hearing intact to conversation at normal volume, moist oral mucosa Neck: Supple, non-tender, no JVD, no lymphadenopathy Lungs: Non-labored respirations, symmetric chest rise, Clear to auscultate bilaterally, No wheezing, rhonchi, crackles Heart: Peripheral pulses intact bilaterally, Regular Rate and Rhythm. Abdomen: Soft, non-tender, non-distended, no palpable masses Musculoskeletal: Normal range of motion and strength, No cyanosis or edema, No visible joint swelling, Tenedbilateral calf Skin: Right hallux lateral ulcer and a left 5th toe dorsal ulceration. Both lesions were non-draining with minimal surround erythema. Psychiatric: Cooperative, appropriate mood and affect, Awake and alert, not agitated Neuro: Cranial nerves II-XII grossly intact. Strength 5/5 throughout. Sensations intact to light touch. Objective Labs 02/14/25 05:07 02/14/25 05:07 Labs: Laboratory Results - last 24 hr 02/12/25 02/12/25 02/13/25 16:02 17:24 04:19 WBC 6.0 RBC 3.98 L Hgb 12.8 L Hct 37.9 L MCV 95 MCH 32.2 MCHC 33.8 RDW Std Deviation 44.1 H Plt Count 173 Neut % (Auto) 63 Lymph % (Auto) 25 Anderson % (Auto) 11 Eos % (Auto) 1 Baso % (Auto) 0 Neut # (Auto) 3.8 Lymph # (Auto) 1.5 Anderson # (Auto) 0.6 Eos # (Auto) 0.0 Baso # (Auto) 0.0 Immature Gran # (Auto) 0.02 H Absolute Nucleated RBC 0.00 Immature Gran % 0 Nucleated RBC % 0 Sodium 140 Potassium 3.5 D Chloride 106 Carbon Dioxide 24.5 Anion Gap 10 BUN 9 Creatinine 0.9 Estim Creat Clear Calc 125.0 eGFR > 60 BUN/Creatinine Ratio 10 L Glucose [address] Glu mg/dL 105 Hemoglobin A1c 5.3 Calculated Osmolality 279 Lactic Acid 0.7 Calcium 8.6 Corrected Calcium 8.6 Phosphorus 2.8 Magnesium 2.0 Total Bilirubin 0.4 AST 23 ALT 16 Alkaline Phosphatase 53 Total Protein 6.6 Albumin 4.0 D Globulin 2.6 Albumin/Globulin Ratio 1.5 Triglycerides 50 Cholesterol 101 L LDL Cholesterol, Calc 53 HDL Cholesterol 38 L Cholesterol/HDL Ratio 2.7 L TSH 0.72 Free T4 1.18 Urine Opiates Screen Urine Fentanyl Screen Ur Barbiturates Screen U Amphetamin/Meth Scrn U Benzodiazepines Scrn U Cocaine Metab Screen U Marijuana (THC) Screen Hepatitis A IgM Ab Non Reactive Hep Bs Antigen Non Reactive Hep B Core IgM Ab Non Reactive Hepatitis C Antibody Non Reactive HIV 1&2 Antibody Rapid Non-Reactive 02/13/25 07:15 WBC RBC Hgb Hct MCV MCH MCHC RDW Std Deviation Plt Count Neut % (Auto) Lymph % (Auto) Anderson % (Auto) Eos % (Auto) Baso % (Auto) Neut # (Auto) Lymph # (Auto) Anderson # (Auto) Eos # (Auto) Baso # (Auto) Immature Gran # (Auto) Absolute Nucleated RBC Immature Gran % Nucleated RBC % Sodium Potassium Chloride Carbon Dioxide Anion Gap BUN Creatinine Estim Creat Clear Calc eGFR BUN/Creatinine Ratio Glucose Estimated Ave Glu mg/dL Hemoglobin A1c Calculated Osmolality Lactic Acid Calcium Corrected Calcium Phosphorus Magnesium Total Bilirubin AST ALT Alkaline Phosphatase Total Protein Albumin Globulin Albumin/Globulin Ratio Triglycerides Cholesterol LDL Cholesterol, Calc HDL Cholesterol Cholesterol/HDL Ratio TSH Free T4 Urine Opiates Screen Negative Urine Fentanyl Screen Negative Ur Barbiturates Screen Negative U Amphetamin/Meth Scrn Positive A U Benzodiazepines Scrn Negative U Cocaine Metab Screen Negative U Marijuana (THC) Screen Positive A Hepatitis A IgM Ab Hep Bs Antigen Hep B Core IgM Ab Hepatitis C Antibody HIV 1&2 Antibody Rapid Quality Measures Quality Measures VTE prophylaxis Assessment & Plan Assessment Current Active Medications: Generic Name Dose Route Start Last Admin Trade Name Freq PRN Reason Stop Dose Admin Acetaminophen 650 mg 02/12/25 16:11 Acetaminophen 325 Mg Tablet PO 03/14/25 16:10 Q6H PRN Fever >101.5 Clotrimazole 0 gm 02/13/25 21:00 Clotrimazole Cr 1% 30 Gm Tube TOP 03/15/25 20:59 BID ZOEY Heparin Sodium (Porcine) 5,000 unit 02/12/25 21:00 02/13/25 09:19 Heparin Sod Inj 5000 Unit/Ml Vial SC 02/26/25 20:59 5,000 unit Q12HR ZOEY Administration Ceftriaxone Sodium 2 gm/ 50 mls @ 100 mls/hr 02/12/25 16:22 02/13/25 09:19 Sodium Chloride IV 02/19/25 16:21 100 mls/hr QDAY ZOEY Administration Doxycycline Hyclate 100 mg/ 100 mls @ 100 mls/hr 02/12/25 21:00 02/13/25 09:59 Sodium Chloride IV 02/19/25 20:59 100 mls/hr BID ZOEY Administration Nicotine 21 mg 02/13/25 09:00 02/13/25 09:19 Nicotine Patch 21 Mg/24 Hr Patch.Td24 TOP 03/15/25 08:59 21 mg QDAY ZOEY Administration Ondansetron HCl 4 mg 02/12/25 16:11 Ondansetron Inj 2 Mg/Ml Inj 2 Ml IVP 12/26/25 16:10 Q6H PRN NAUSEA OR VOMITING Protocol Plan Nazario oCtton, 39yM, with PMH of polysubstance use presented to the hospital for evaluation of foot ulceration and pain. Patient will be admitted for management of cellulitis. #Cellulitis of left and right toe #Right hallux lateral ulcer and a left 5th toe dorsal ulcer -In admission, Temperature 98.1 F, LA 96, RR 19, WBC 7.7, Hgb 13.3, ESR 33, potassium 4.0, anion gap 9, creatinine 0.9, CRP 0.9 -Patient reported left foot and calf pain that started 3 weeks ago. -On examination, he was found to have a right hallux lateral ulcer and a left 5th toe dorsal ulceration. Both lesions were non-draining with minimal surround erythema. -XR of Right foot (02/12/2025): Prominent hallux valgus bunion deformity, Erosions distal medial first metatarsal on the oblique view, consider early osteomyelitis -US venous doppler right Lower Extremity (02/12/2025): Negative for DVT -HbA1c level 5.3, hep panel negative, HIV 1 and 2 antibody was negative -US arterial duplex bilateral Lower Extremity was negative -XR left foot: negative -Blood Culture was negative for 24 hours. Plan: -On IV Ceftriaxone 2g qd and IV Doxycycline 100mg bid -BCx pending -Referral Wound care Disposition: MedSurg Diet: Regular diet GI prophylaxis: Not indicated DVT prophylaxis: Heparin 5000 units SC q12hr Code: FULL Assessment and plan discussed with my attending physician Dr. Gloria and Dr. Henning (PGY-2) Dr. Barclay (PGY-1) - Internal medicine resident Attending Provider Attestation/Addendum Shira Lorenzo, , attest that I was physically present for the durham portions of the service and evaluated the patient with the resident and I reviewed and discussed the case with the resident and agree with the resident's findings and plans of care as documented above Patient seen and evaluated this AM. He reports some improvement of his edema of his right lower extremity, but continues to have some pain with ambulation. Will continue with current abx regimen and f/u with blood cultures. If negative, anticipate DC within next 24h. Wound care ordered. Will apply clomitrazole cream due to tinea pedis
[2025-02-13] MEDS: NICOTINE PATCH 14 MG/24 HR PATCH.TD24 TOP (20:33)
[2025-02-14] VITALS: BP 122/74; PULSE 99; RESP 98; TEMP 36.7; O2SAT 98
[2025-02-14 04:00] VITALS: BP 122/74; PULSE 99; RESP 16; TEMP 36.7; O2SAT 98
[2025-02-14 04:03] VITALS: BP 128/92; PULSE 81; RESP 16; TEMP 36.3; O2SAT 98
[2025-02-14 05:52] LABS: Basophils # (Auto) 0.0 Thou/mm3 (0.0-0.2); Basophils % (Auto) 1 % (0-2.5); Eosinophils # (Auto) 0.1 Thou/mm3 (0.0-0.5); Eosinophils % (Auto) 1 % (0-10); Hematocrit 40.9 % (41.0-53.0); Hemoglobin 13.8 g/dL (13.5-16.0); Immature Granulocytes Auto 0.01 Thou/mm3 (0.00-0.00); Lymphocytes # (Auto) 1.3 Thou/mm3 (1.0-4.8); Lymphocytes % (Auto) 25 % (10-50); Mean Corpuscular HGB Conc 33.7 g/dl (31.0-37.0); Mean Corpuscular Hemoglobin 32.2 pg (25.0-35.0); Mean Corpuscular Volume 95 fL (80-100); Monocytes # (Auto) 0.5 Thou/mm3 (0.0-0.8); Monocytes % (Auto) 11 % (0-12); Neutrophils # (Auto) 3.2 Thou/mm3 (1.8-7.7); Neutrophils % (Auto) 62 % (37-80); Nucleated Red Blood Cell # 0.00 Thou/mm3 (0.00-0.00); Nucleated Red Blood Cell % 0 /100 WBC (0); Platelet Count 149 Thou/mm3 (140-440); RDW Standard Deviation 44.8 fL (35.1-43.9); Red Blood Count 4.29 Miln/mm3 (4.50-5.90); White Blood Count 5.1 Thou/mm3 (3.8-10.6)
[2025-02-14 06:23] LABS: Alanine Aminotransferase 16 U/L (10-49); Albumin, Serum 4.4 gm/dL (3.5-5.0); Albumin/Globulin Ratio 1.5 (1.2-2.2); Alkaline Phosphatase 56 U/L (46-116); Anion Gap 9 (7-16); Aspartate Amino Transferase 21 U/L (0-34); BUN/Creatinine Ratio 14 Ratio (12-20); Bilirubin,Total 0.4 mg/dL (0.3-1.2); Blood Urea Nitrogen 14 mg/dL (9-23); Calcium 9.5 mg/dL (8.3-10.6); Calcium (Corrected) 9.5 mg/dL (8.5-10.1); Carbon Dioxide 22.8 mMol/L (20.0-31.0); Chloride 107 mMol/L (98-107); Creatinine (Component) 1.0 mg/dL (0.6-1.3); Estimated Creatinine Clearance 112.5 mL/min (>60); Globulin 2.9 gm/dL (2.3-3.5); Glucose 92 mg/dL (74-106); Magnesium 2.0 mg/dL (1.6-2.6); Osmolality,Calculated 278 (275-295); Phosphorous 2.5 mg/dL (2.4-5.1); Potassium 4.1 mMol/L (3.4-5.1); Sodium 139 mMol/L (136-145); Total Protein 7.3 gm/dL (5.7-8.2); eGFR > 60 See Note
[2025-02-14 07:56] VITALS: PULSE 93; RESP 17; RESP 97
[2025-02-14 08:35] VITALS: BP 129/74; PULSE 92; RESP 17; TEMP 36.3; O2SAT 95
--- NOTE | 2025-02-14 08:50 | PC.SS ---
Follow up note: On IV antibiotic.
[2025-02-14] MEDS: cefTRIAXone 2 GM in SODIUM CHLORIDE 0.9% (Popper) 50 ML IV (09:13)
[2025-02-14] MEDS: HEPARIN SOD INJ 5000 UNIT/ML VIAL SC (09:13)
[2025-02-14] MEDS: NICOTINE PATCH 21 MG/24 HR PATCH.TD24 TOP (09:14)
[2025-02-14] MEDS: CLOTRIMAZOLE CR 1% 30 GM TUBE TOP (09:21)
[2025-02-14] MEDS: DOXYCYCLINE INJ 100 MG in SODIUM CHLORIDE 0.9% (POP) 100 ML IV (09:56)
[2025-02-14 12:00] VITALS: BP 144/90; PULSE 83; RESP 16; TEMP 36.1; O2SAT 99
--- NOTE | 2025-02-14 15:39 | PC.SS ---
Pt states he is staying with friends. Pt is requiring transportation. SS has setup up [facility]. SS confirmed address for drop location.
--- NOTE | 2025-02-14 16:47 | ESDS_ITS ---
<Statement entered by Comfort Henning MD - 02/15/25 05:36> Patient was seen and examined by me personally. I have reviewed the below documentation by the team resident and agree with its findings. Discharge plan was discussed with the attending, Dr. Jonny Henning MD Internal Medicine, PGY-2 Planned Discharge Date 02/14/25 DS: Providers Provider Date of admission: 02/12/25 16:12 Primary care physician: Physician No Primary/Family Admitting Provider: Shira Gloria DO Attending Provider on Admission: Shira Gloria DO Consults: 02/12/25 16:23 Referral Wound Care Routine Comment: Left 5th toe dorsal and Right hallux lateral ulcer 02/12/25 20:50 Referral Smoking Cessation Counseling Routine Comment: Smoking Cessation Education Needed 02/13/25 09:55 Referral OP Wound Healing Dept Stat Comment: Attending Provider on DC: Ina Barclay DO Discharging Provider: Ina Barclay DO DS: Diagnosis Problem List Completed Was Problem List Reviewed/Reconciled?: Yes Hospital Course Hospital Course Hospital course: Hospital Course: 39-year-old male with past medical history of right lower extremity DVT 2018, chronic smoker, about 30 pack years and polysubstance use presented to [facility] emergency department with a chief complaint of foot pain. Upon examination, patient had Right hallux lateral ulcer and a left 5th toe dorsal ulceration. Both lesions were non-draining with minimal surround erythema. Right foot Xray showed Prominent hallux valgus bunion deformity and Erosions distal medial first metatarsal with possible early osteomyelitis. Left foot Xray was negative for osteomylieitis. US venous doppler right LE was negative for DVT, and US arterial buplex bilateral LE was negative for PE. Started on IV ceftriaxone and IV doxycycline. HbA1c was 5.3, hep panel was negative, and HIV 1 & 2 antibody was negative. Blood culture was negative for 48hrs. Patient's vitals and labs were stable and discharged on 02/14/2025. #Cellulitis of left and right toe #Right hallux lateral ulcer and a left 5th toe dorsal ulcer Instructions: - You were admitted for possible osteomyelitis, you do have signs of early osteomyelitis on x-ray. You do not have diabetes or any other risk factors for osteomyelitis your blood cultures were negative. We are discharging you on 6 weeks of antibiotics take Jayyflex and doxycycline as prescribed below. Obtain weekly ESR CRP levels. - We recommend you obtain a referral for podiatry and follow-up with podiatry outpatient. Follow-up with your primary care physician within 1 week - Return to emergency department if your symptoms worsen. - Follow-up in [facility] in 1 to 2 weeks if you don't have a PCP. Call [phone] to make an appointment Address: [facility], [address], [address], [place], [address] Return to ED if symptoms return or worsen. Assessment and plan discussed with my attending physician Dr. Diaz and Dr. Henning (PGY-2) Dr. Barclay (PGY-1) - Internal medicine resident Status at Discharge Overall status at discharge: patient is progressing back to baseline Time Spent with Patient Time attestation: Total time spent providing and/or coordinating discharge services: Time spent: Greater than 30 minutes Exam Vital Signs Temp Pulse Resp BP Pulse Ox O2 Del Method 97.0 F 83 16 144/90 H 99 Room Air 02/14/25 12:00 02/14/25 12:00 02/14/25 12:00 02/14/25 12:00 02/14/25 12:00 02/14/25 12:00 Narrative Exam General: No acute distress, well nourished, AAO x2 Eye: PERRL, EOMI, normal conjunctiva, no scleral icterus HENT: Normocephalic, atraumatic, hearing intact to conversation at normal volume, moist oral mucosa Neck: Supple, non-tender, no JVD, no lymphadenopathy Lungs: Non-labored respirations, symmetric chest rise, Clear to auscultate bilaterally, No wheezing, rhonchi, crackles Heart: Peripheral pulses intact bilaterally, Regular Rate and Rhythm. Abdomen: Soft, non-tender, non-distended, no palpable masses Musculoskeletal: Normal range of motion and strength, No cyanosis or edema, No visible joint swelling, Tenedbilateral calf Skin: Right hallux lateral ulcer and a left 5th toe dorsal ulceration. Both lesions were non-draining with minimal surround erythema. Psychiatric: Cooperative, appropriate mood and affect, Awake and alert, not agitated Neuro: Cranial nerves II-XII grossly intact. Strength 5/5 throughout. Sensations intact to light touch. Discharge Plan Plan Patient Disposition: HOME (Self Care) Patient condition on transfer: Stable Care Plan Goals: - You were admitted for possible osteomyelitis, you do have signs of early o steomyelitis on x-ray. You do not have diabetes or any other risk factors for osteomyelitis your blood cultures were negative. We are discharging you on 6 weeks of antibiotics take Keflex and doxycycline as prescribed below. Obtain weekly ESR CRP levels. - We recommend you obtain a referral for podiatry and follow-up with podiatry outpatient. Follow-up with your primary care physician within 1 week - Return to emergency department if your symptoms worsen. - Follow-up in [facility] in 1 to 2 weeks if you don't have a PCP. Call [phone] to make an appointment Address: [facility], [facility] [address], [address], [place], [address] Return to ED if symptoms return or worsen. Prescriptions/Referrals Prescriptions/Med Rec: New nicotine (polacrilex) 4 mg gum 4 mg buccal Q2H Qty: 20 0RF doxycycline hyclate 100 mg capsule 100 mg PO BID 42 Days Qty: 84 0RF cephalexin 500 mg capsule 500 mg PO TID 42 Days Qty: 126 0RF clotrimazole 1 % cream 1 applic topical TID Qty: 15 0RF Referrals: No Primary/Family,Physician [Primary Care Provider] Comfort Henning MD [Resident, Internal Medicine] Patient/Caregiver Discharge Instructions Discharge Activity: activity as tolerated Education Materials: Osteomyelitis Dc Print Language: Luxembourgish Stand Alone Forms: [facility]elida Award Info., Patient Portal Info Letter Discharge Order Discharge Orders: Discharge (Routine); Ordered 02/14/25 Ordered By: Comfort Henning Quality Discharge Quality Measures VTE prophylaxis Attestestation Attestation Patient shoudl follow up with his PCP and be referred to a podiatry specialista as soon as possible, Risk for non compliance discussed, agree with plan as above.
== END 2025-02-14 15:34 | disposition home or self-care (01) | DRG 540 ==
LOC: SERX 15:34 → SERHOLD 16:41 → S3SX 18:28
PROVIDERS: Admitting Provider Internal Medicine; Emergency Provider Emergency Medicine; Visit Provider Internal Medicine
DX: M86.8X7 Other osteomyelitis, ankle and foot (principal); L03.115 Cellulitis of right lower limb; Z59.02 Unsheltered homelessness; L97.519 Non-pressure chronic ulcer of other part of right foot with unspecified severity; L97.529 Non-pressure chronic ulcer of other part of left foot with unspecified severity; B35.3 Tinea pedis; M20.11 Hallux valgus (acquired), right foot; M21.611 Bunion of right foot; F17.210 Nicotine dependence, cigarettes, uncomplicated; F12.90 Cannabis use, unspecified, uncomplicated; Z65.3 Problems related to other legal circumstances; Z86.718 Personal history of other venous thrombosis and embolism
CPT/HCPCS: 36415; 73630; 80053; 80061; 80074; 80307; 81001; 83036; 83605; 83690; 83735; 84100; 84439; 84443; 85025; 85652; 86140; 86703; 87040; 93925; 93971; 96365; 99283; J0696; J1644; J2543; J3373; J3490; J7050; A9270